=== PATIENT | female | born 1970 | race Caucasian/White ===

== ENCOUNTER 2023-10-30 16:39 | Inpatient (IN) | payer MEDICAID ==
[~2023-10-30] VITALS: Ht 152.4 cm; Wt 68.0 kg
[2023-10-30 16:40] VITALS: BP_SYST 124; PULSE 87; RESP 18; TEMP 97; O2SAT 98
[2023-10-30 17:09] LABS: BASOPHILS % (AUTO) 0.5 % (0.0-2.0); EOSINOPHILS # (AUTO) 0.1 K/uL (0.0-0.4); EOSINOPHILS % (AUTO) 1.5 % (0.0-4.0); HEMATOCRIT 34.2 % (36-48); HEMOGLOBIN 11.9 g/dL (12.0-16.0); LYMPHOCYTES # (AUTO) 2.3 K/uL (1.0-5.5); LYMPHOCYTES % (AUTO) 24.9 % (20.5-51.5); MEAN CORPUSCULAR HEMOGLOBIN 32 pg (27-31); MEAN CORPUSCULAR HGB CONC 35 % (32-36); MEAN CORPUSCULAR VOLUME 91 fL (79.0-98.0); MONOCYTES # (AUTO) 0.8 K/uL (0.0-1.0); MONOCYTES % (AUTO) 8.8 % (1.7-9.3); NEUTROPHILS # (AUTO) 5.8 K/uL (1.8-7.7); NEUTROPHILS % (AUTO) 64.3 % (40.0-70.0); PLATELET COUNT (AUTO) 346 K/uL (130-430); RED BLOOD CELL COUNT(AUTO) 3.74 MIL/uL (4.2-6.2); RED CELL DISTRIBUTION WIDTH 12.7 % (9.0-15.0); WHITE BLOOD COUNT (AUTO) 9.1 K/uL (4.8-10.8)
[2023-10-30 17:36] LABS: ALBUMIN 3.3 g/dL (3.4-4.8); CREATININE 0.75 mg/dL (0.55-1.30); POTASSIUM 3.8 mmol/L (3.5-5.1); TOTAL BILIRUBIN 0.2 mg/dL (0.0-1.0); TOTAL PROTEIN, SERUM 7.1 g/dL (6.4-8.3)
[2023-10-30 17:37] LABS: SERUM HCG (QUALITATIVE) NEGATIVE (NEGATIVE)
[2023-10-30 17:59] LABS: PROTHROMBIN TIME 10.2 SECS (9.5-12.5)
[2023-10-30 18:05] LABS: BILIRUBIN,DIRECT 0.1 mg/dL (0.0-0.3)
[2023-10-30] MEDS: NACL 0.9% 1,000 ML IV ONE (18:33)
[2023-10-30] MEDS: ONDANSETRON HCL 4 MG/2 ML VIAL IVP ONE (18:40)
[2023-10-30] MEDS: MORPHINE 4 MG INJ. 4 MG/ML VIAL IVP ONE (18:41)
[2023-10-30] MEDS: CLINDAMYCIN 600 MG in D5W 50 ML IV ONE (19:11)
[2023-10-30] MEDS ORDERED: LORazepam 2 MG/ML VIAL IVP PRN (19:30)
[2023-10-30] MEDS ORDERED: ONDANSETRON HCL 4 MG/2 ML VIAL IVP PRN (19:30)
[2023-10-30] MEDS ORDERED: ACETAMINOPHEN 325 MG TABLET PO PRN (19:30)
[2023-10-30] MEDS ORDERED: HYDROcodone/ACETAMIN 5-325 MG TAB (NORCO/ VICODIN) PO PRN (19:30)
[2023-10-30] MEDS ORDERED: CARI1.5C PO (19:47)
[2023-10-30] MEDS ORDERED: VENL150C53 PO (19:47)
[2023-10-30] MEDS ORDERED: BUPR-48 PO (19:47)
[2023-10-30] MEDS ORDERED: CYCL7.5T20 (19:47)
[2023-10-30] MEDS ORDERED: GABA300T28 (19:47)
[2023-10-30] MEDS ORDERED: HYDR-3908 PO (19:47)
[2023-10-30] MEDS ORDERED: PRAZ2CAP2 PO (19:47)
[2023-10-30] MEDS: CLINDAMYCIN PHOS 600 MG/ D5W 50 ML PREMIX IV ONE (19:48)
[2023-10-30 20:40] VITALS: BP_SYST 109; PULSE 75; RESP 18; TEMP 98.1; O2SAT 96
[2023-10-30] MEDS: NACL 0.9% 1,000 ML IV SCH (21:45)
[2023-10-30] MEDS: cefTRIAXone 1 GM IVPB PREMIX 50 ML IV SCH (21:45)
[2023-10-30] MEDS: metroNIDAZOLE 500 mg/NS 100 ML IV SCH (23:28)
[2023-10-30 23:31] LABS: BILIRUBIN,URINE NEGATIVE (NEGATIVE); BLOOD, URINE NEGATIVE (NEGATIVE); COLOR,URINE YELLOW (YELLOW); GLUCOSE,URINE NEGATIVE (NEGATIVE); KETONES,URINE NEGATIVE (NEGATIVE); LEUKOCYTE ESTERASE ,URINE TRACE (NEGATIVE); NITRITE, URINE NEGATIVE (NEGATIVE); PROTEIN URINE NEGATIVE (NEGATIVE); UROBILINOGEN,URINE 0.2 (0.2-1.0)
[2023-10-30 23:41] LABS: CLARITY/URINE HAZY (CLEAR)
[2023-10-30 23:54] LABS: BACTERIA,URINE FEW /HPF (None Seen); RBC,URINE 0-3 /HPF (0-3)
[2023-10-31] VITALS (7 sets, daily range): BP systolic 104–123; PULSE 55–78; RESP 18–20; TEMP 97.1–98.2; O2SAT 95–98
[2023-10-31 04:44] LABS: BASOPHILS # (AUTO) 0.1 K/uL (0.0-0.2); BASOPHILS % (AUTO) 0.6 % (0.0-2.0); EOSINOPHILS # (AUTO) 0.1 K/uL (0.0-0.4); EOSINOPHILS % (AUTO) 1.5 % (0.0-4.0); HEMOGLOBIN 11.2 g/dL (12.0-16.0); LYMPHOCYTES # (AUTO) 3.2 K/uL (1.0-5.5); LYMPHOCYTES % (AUTO) 33.6 % (20.5-51.5); MEAN CORPUSCULAR HEMOGLOBIN 31 pg (27-31); MEAN CORPUSCULAR HGB CONC 34 % (32-36); MEAN CORPUSCULAR VOLUME 92 fL (79.0-98.0); MONOCYTES # (AUTO) 0.8 K/uL (0.0-1.0); NEUTROPHILS # (AUTO) 5.3 K/uL (1.8-7.7); NEUTROPHILS % (AUTO) 56.3 % (40.0-70.0); PLATELET COUNT (AUTO) 300 K/uL (130-430); RED BLOOD CELL COUNT(AUTO) 3.58 MIL/uL (4.2-6.2); RED CELL DISTRIBUTION WIDTH 12.9 % (9.0-15.0); WHITE BLOOD COUNT (AUTO) 9.5 K/uL (4.8-10.8)
[2023-10-31 05:12] LABS: ALBUMIN 2.7 g/dL (3.4-4.8); CALCIUM 8.2 mg/dL (8.4-11.0); CREATININE 0.75 mg/dL (0.55-1.30); PHOSPHORUS 3.6 mg/dL (2.7-4.5); POTASSIUM 3.7 mmol/L (3.5-5.1); TOTAL BILIRUBIN 0.2 mg/dL (0.0-1.0)
[2023-10-31] MEDS ORDERED: NS IRRIG SOLN 1000 ML IR ONE (09:00)
[2023-10-31] MEDS ORDERED: SUCCINYLCHOLINE CHLORIDE 20 MG/ML(QUELICIN) ONE (09:00)
[2023-10-31] MEDS ORDERED: MIDAZOLAM HCL 2 MG/2 ML VIAL (VERSED) ONE (09:00)
[2023-10-31] MEDS ORDERED: ONDANSETRON HCL 4 MG/2 ML VIAL ONE ×2 (09:00→10:48)
[2023-10-31] MEDS ORDERED: NS 1000 ML IV.SOLN IV ONE (09:00)
[2023-10-31] MEDS ORDERED: NEOSTIGMINE METHYLSULFATE 1 MG/ML, 10 ML VIAL ONE (09:00)
[2023-10-31] MEDS ORDERED: WATER FOR IRRIGATION,STERILE 1,000 ML IRRIG.SOLN IR ONE (09:00)
[2023-10-31] MEDS ORDERED: fentaNYL CITRATE/PF 100 MCG/2 ML AMP ONE (09:00)
[2023-10-31] MEDS ORDERED: DEXAMETHASONE SOD PHOSPHATE 4 MG/ML VIAL ONE (09:00)
[2023-10-31] MEDS ORDERED: PROPOFOL 200MG/ 20ML VIAL (DIPRIVAN) IV ONE (09:00)
[2023-10-31] MEDS ORDERED: ROCURONIUM BROMIDE 10 MG/ML (ZEMURON) ONE (09:00)
[2023-10-31] MEDS ORDERED: SEVOFLURANE 15 MIN GAS INH ONE (09:00)
[2023-10-31] MEDS ORDERED: GLYCOPYRROLATE 0.2 MG/ML VIAL ONE (09:00)
[2023-10-31] MEDS ORDERED: KETOROLAC TROMETHAMINE 30 MG VIAL IVP PRN (09:45)
[2023-10-31] MEDS ORDERED: NALOXONE HCL 0.4 MG/ML AMP (NARCAN) IVP PRN (09:45)
[2023-10-31] MEDS ORDERED: METOCLOPRAMIDE HCL 10 MG/2 ML VIAL IVP PRN (09:45)
[2023-10-31] MEDS: ONDANSETRON HCL 4 MG/2 ML VIAL IVP PRN (10:48)
[2023-10-31] MEDS ORDERED: HYDROmorphone 1 MG/ML INJ. CARTRIDGE ONE (10:48)
[2023-10-31] MEDS: HYDROmorphone 1 MG/ML INJ. CARTRIDGE IVP PRN (10:48)
[2023-10-31] MEDS: MORPHINE 2 MG/ML INJ. SYRINGE IVP PRN (14:00)
[2023-11-01] VITALS: BP_SYST 114; PULSE 81; RESP 17; TEMP 98.7; O2SAT 97
[2023-11-01 08:00] VITALS: BP_SYST 122; PULSE 78; RESP 18; TEMP 98.6; O2SAT 95
[2023-11-01 08:20] LABS: BASOPHILS % (AUTO) 0.3 % (0.0-2.0); EOSINOPHILS % (AUTO) 0.3 % (0.0-4.0); HEMOGLOBIN 11.5 g/dL (12.0-16.0); LYMPHOCYTES # (AUTO) 2.3 K/uL (1.0-5.5); LYMPHOCYTES % (AUTO) 20.6 % (20.5-51.5); MEAN CORPUSCULAR HEMOGLOBIN 31 pg (27-31); MEAN CORPUSCULAR HGB CONC 34 % (32-36); MEAN CORPUSCULAR VOLUME 92 fL (79.0-98.0); MONOCYTES # (AUTO) 0.5 K/uL (0.0-1.0); MONOCYTES % (AUTO) 4.4 % (1.7-9.3); NEUTROPHILS # (AUTO) 8.5 K/uL (1.8-7.7); NEUTROPHILS % (AUTO) 74.4 % (40.0-70.0); PLATELET COUNT (AUTO) 325 K/uL (130-430); RED BLOOD CELL COUNT(AUTO) 3.69 MIL/uL (4.2-6.2); WHITE BLOOD COUNT (AUTO) 11.4 K/uL (4.8-10.8)
[2023-11-01 08:32] LABS: ALBUMIN 2.5 g/dL (3.4-4.8); CALCIUM 8.2 mg/dL (8.4-11.0); CREATININE 0.91 mg/dL (0.55-1.30); POTASSIUM 3.3 mmol/L (3.5-5.1); TOTAL BILIRUBIN 0.2 mg/dL (0.0-1.0); TOTAL PROTEIN, SERUM 6.2 g/dL (6.4-8.3)
[2023-11-01] MEDS: POTASSIUM CHLORIDE 20 MEQ/PKT PACKET PO ONE (10:06)
[2023-11-01 10:09] VITALS: O2SAT 95
[2023-11-01] MEDS: ACETAMINOPHEN 325 MG TABLET PO PRN (11:17)
[2023-11-01] MEDS ORDERED: IBUP-1969 PO (11:37)
[2023-11-01] MEDS ORDERED: OMEP20CA15 PO (11:37)
[2023-11-01 12:47] VITALS: BP_SYST 130; PULSE 76; RESP 14; TEMP 97.7; O2SAT 95
[2023-11-01 14:00] VITALS: BP_SYST 115; PULSE 68; RESP 18; TEMP 97.9; O2SAT 97
== END 2023-11-01 15:15 | disposition home or self-care (01) | DRG 233 ==
LOC: SED 16:39 → SMU 19:21
PROVIDERS: ADMIT Student in an Organized Health Care Education/Training Program; ATTEND Student in an Organized Health Care Education/Training Program
PROC: 0DTJ4ZZ Resection of Appendix, Percutaneous Endoscopic Approach (ICD-10-PCS; principal; 2023-10-31 09:00)
DX: K35.33 Acute appendicitis with perforation, localized peritonitis, and gangrene, with abscess (principal); E44.0 Moderate protein-calorie malnutrition; E87.6 Hypokalemia; F32.A Depression, unspecified; F41.9 Anxiety disorder, unspecified; Z79.899 Other long term (current) drug therapy; Z68.29 Body mass index [BMI] 29.0-29.9, adult
CPT/HCPCS: 36415; 71045; 80048; 80053; 80076; 81000; 81001; 81015; 82150; 83605; 83690; 83735; 84100; 84703; 85025; 85610; 85730; 87081; 87086; 88304; 93005; 94070; 96365; 99285; C1727; J0330; J0696; J1100; J1170; J2270; J2405; J2704; J2710; J3010; J3465; J3490; J7030